=== PATIENT | female | born 1950 | race Caucasian/White ===

== ENCOUNTER 2018-05-28 10:52 | Emergency (ER) | payer MEDICARE, OTHER ==
[~2018-05-28] VITALS: Ht 160 cm; Wt 50.0 kg
[~2018-05-28 10:52] MED LIST: ACTOPLUS MET; DIOVAN; GLYBURIDE; LEVEMIR; TEKTURNA; TRICOR
[2018-05-28 12:02] LABS: BASOPHILS % 1.3 % (0.0-2.0); EOSINOPHILS % 1.2 % (0.0-5.0); HEMATOCRIT. 36.2 % (36.0-48.0); HEMOGLOBIN. 11.4 g/dL (12.0-16.0); LYMPHOCYTES % 23.2 % (20.0-50.0); MEAN CORPUSCULAR HEMOGLOBIN 23.1 pg (28.0-32.0); MEAN CORPUSCULAR VOLUME 73.3 fL (81.0-99.0); MEAN PLATELET VOLUME 9.2 fl (7.4-10.4); MONOCYTES % 5.1 % (2.0-8.0); NEUTROPHILS % 69.2 % (40.0-76.0); PLATELET 343 x1000/uL (130-400); RED BLOOD CELL COUNT 4.94 mill/uL (4.2-5.4); RED CELL DISTRIBUTION WIDTH 17.6 % (11.6-14.6)
[2018-05-28 12:07] LABS: CHLORIDE 109 mEq/L (98-107); PROTHROMBIN TIME 10.7 sec (9.4-11.6)
[2018-05-28] MEDS ORDERED: HYDRALAZINE 20MG/ML VIAL IV ONE (13:15)
[2018-05-28 16:00] VITALS: BP 145/74
== END 2018-05-28 16:00 | disposition home or self-care (01) ==
LOC: ER 10:52
DX: I16.0 Hypertensive urgency (principal); E11.65 Type 2 diabetes mellitus with hyperglycemia; I10 Essential (primary) hypertension; E78.00 Pure hypercholesterolemia, unspecified
CPT/HCPCS: 36415; 71045; 80053; 82962; 85025; 85610; 93005; 96374; 99285; J0360